=== PATIENT | female | born 1960 | race Caucasian/White ===

== ENCOUNTER 2021-02-22 05:50 | Observation (INO) | payer OTHER ==
[2021-01-29 10:13] LABS: BASOPHILS % 0.3 % (0.0-1.0); EOSINOPHILS # (AUTO) 0.2 (0.0-0.4); EOSINOPHILS % 2.4 % (0.0-6.0); HEMATOCRIT 41.3 % (34.2-44.1); HEMOGLOBIN 13.6 g/dL (12.0-16.0); LYMPHOCYTES # (AUTO) 2.5 (1.0-3.2); LYMPHOCYTES % 24.9 % (18.0-39.1); MEAN CORPUSCULAR HGB CONC 32.9 g/dL (31-35); MONOCYTES # (AUTO) 0.7 (0.2-0.8); MONOCYTES % 6.6 % (4.4-11.3); NEUTROPHILS # (AUTO) 6.5 (2.1-6.9); NEUTROPHILS % 65.5 % (38.7-80.0); PLATELET COUNT 294 x10e3/uL (140-360); RED BLOOD COUNT 4.54 x10e6/uL (3.6-5.1); RED CELL DISTRIBUTION WIDTH 12.6 % (11.7-14.4)
[2021-01-29 10:32] LABS: ANION GAP 12.6 mmol/L (8-16); CALCIUM 9.2 mg/dL (8.4-10.2); CREATININE, SERUM 0.59 mg/dL (0.57-1.11); POTASSIUM 3.6 mmol/L (3.5-5.1)
[2021-02-22] VITALS (7 sets, daily range): BP systolic 96–112; BP diastolic 57–69
[~2021-02-22] VITALS: Ht 152.4 cm; Wt 65.5 kg
[~2021-02-22 05:50] MED LIST: ALBUTEROL INH; ASPIRIN81 MG PO; CRESTOR10 MG PO; ELDERBERRY-VIT1 EACH PO; IBUPROFEN200 MG PO; METOPROLOL SUCC25 MG PO; MULTI-VITAMIN1 EACH PO; NICODERM CQ1 EAC1 TOP; SYMBICORT 16010.2 GM INH; VALSARTAN-HCTZ1 EACH PO; VITAMIN B-121000 MC1 PO; VITAMIN D310 MCG PO
[2021-02-22] MEDS ORDERED: ROPIVACAINE 246.25 MG, EPINEPHRINE HCL 1:1000 1ML 0.5 MG, CLONIDINE HCL 0.08 MG, KETORO... INJ ONE ×5 (06:30)
[2021-02-22] MEDS ORDERED: TYLENOL ARTHRITIS PO (06:41)
[2021-02-22] MEDS ORDERED: Vancomycin IV 1,000 MG ONE (06:44)
[2021-02-22] MEDS ORDERED: SODIUM CHLORIDE 0.9% 500ML 500 ML ONE (06:44)
[2021-02-22] MEDS ORDERED: TRANEXAMIC ACID 1,000 MG/10 ML ML ONE (06:45)
[2021-02-22] MEDS ORDERED: DEXAMETHASONE SOD PHOS 10 MG/1 ML VIAL ONE (06:57)
[2021-02-22] MEDS ORDERED: CELECOXIB 200 MG CAP ONE (06:57)
[2021-02-22] MEDS ORDERED: SODIUM CHLORIDE 0.9% 50ML 100 ML ONE (06:58)
[2021-02-22] MEDS ORDERED: GABAPENTIN 300 MG CAP ONE (06:58)
[2021-02-22] MEDS ORDERED: ONDANSETRON HCL INJ 2MG/ML 2ML 2 MG/ML VIAL IV PRN (09:15)
[2021-02-22] MEDS ORDERED: HYDROCODONE/APAP 5MG-325MG TAB PO PRN (09:15)
[2021-02-22] MEDS ORDERED: KETOROLAC TROMETHAMINE 30 MG/ML VIAL IV PRN (09:15)
[2021-02-22] MEDS ORDERED: ZOLPIDEM TARTRATE 5 MG TAB PO PRN (09:15)
[2021-02-22] MEDS ORDERED: DOCUSATE SODIUM 100 MG CAP PO PRN (09:15)
[2021-02-22] MEDS ORDERED: ACETAMINOPHEN 650 MG SUPP PR PRN (09:15)
[2021-02-22] MEDS ORDERED: DIPHENHYDRAMINE HCL INJ 50 MG/ML VIAL IV PRN (09:15)
[2021-02-22] MEDS: HYDROCODONE/APAP 7.5MG-325MG 1 EA TAB PO PRN ×2 (10:59→15:29)
[2021-02-22] MEDS ORDERED: SODIUM CHLORIDE 0.9% 1000ML 1,000 ML IV SCH (11:00)
[2021-02-22] MEDS ORDERED: Cefazolin 1 GM in SODIUM CHLORIDE 0.9% 50ML 50 ML IV SCH (16:00)
[2021-02-22] MEDS ORDERED: ASPIRIN 325 MG TAB PO SCH (17:00)
[2021-02-22] MEDS ORDERED: CELECOXIB 200 MG CAP PO SCH (17:00)
[2021-02-23] MEDS ORDERED: ACETAMINOPHEN 1000 MG/100 ML IV PRN (09:15)
== END 2021-02-22 17:55 | disposition home or self-care (01) ==
LOC: OR 05:50 → PACU V 09:40 → MED/SURG 09:58
PROVIDERS: ADMIT Specialist; ATTEND Specialist
DX: M87.852 Other osteonecrosis, left femur (principal); Z20.822 Contact with and (suspected) exposure to COVID-19; Z01.818 Encounter for other preprocedural examination; J44.9 Chronic obstructive pulmonary disease, unspecified; I10 Essential (primary) hypertension; E78.5 Hyperlipidemia, unspecified; M16.12 Unilateral primary osteoarthritis, left hip; F17.210 Nicotine dependence, cigarettes, uncomplicated
CPT/HCPCS: 36415; 71046; 72170; 80048; 85025; 86850; 86900; 86920; 93005; 97139; G0378; J0171; J0690; J1100; J1885; J2795; J3370; J7030; J7040; U0002

== ENCOUNTER 2021-07-20 06:37 | Observation (INO) | payer OTHER ==
[2021-07-16 08:32] LABS: BASOPHILS % 0.5 % (0.0-1.0); EOSINOPHILS # (AUTO) 0.2 (0.0-0.4); EOSINOPHILS % 2.7 % (0.0-6.0); HEMATOCRIT 42.5 % (34.2-44.1); HEMOGLOBIN 13.9 g/dL (12.0-16.0); LYMPHOCYTES # (AUTO) 2.4 (1.0-3.2); LYMPHOCYTES % 30.3 % (18.0-39.1); MEAN CORPUSCULAR HEMOGLOBIN 29.9 pg (28-32); MEAN CORPUSCULAR HGB CONC 32.7 g/dL (31-35); MEAN CORPUSCULAR VOLUME 91.4 fL (81-99); MONOCYTES # (AUTO) 0.6 (0.2-0.8); MONOCYTES % 8.1 % (4.4-11.3); NEUTROPHILS # (AUTO) 4.6 (2.1-6.9); PLATELET COUNT 305 x10e3/uL (140-360); RED BLOOD COUNT 4.65 x10e6/uL (3.6-5.1); RED CELL DISTRIBUTION WIDTH 13.2 % (11.7-14.4)
[2021-07-16 09:02] LABS: ANION GAP 12.2 mmol/L (8-16); CALCIUM 9.5 mg/dL (8.4-10.2); CREATININE, SERUM 0.63 mg/dL (0.57-1.11); POTASSIUM 4.2 mmol/L (3.5-5.1)
[~2021-07-20] VITALS: Ht 152.4 cm; Wt 67.1 kg
[~2021-07-20 06:37] MED LIST changes: +TYLENOL ARTHRITIS PO; +VIT C PO
[2021-07-20] MEDS ORDERED: Vancomycin IV 1,000 MG ONE (06:46)
[2021-07-20] MEDS ORDERED: SODIUM CHLORIDE 0.9% 500ML 500 ML ONE (06:46)
[2021-07-20] MEDS ORDERED: TRANEXAMIC ACID 1,000 MG/10 ML ML ONE (06:47)
[2021-07-20] MEDS ORDERED: CELECOXIB 200 MG CAP ONE (07:15)
[2021-07-20] MEDS ORDERED: DEXAMETHASONE SOD PHOS 10 MG/1 ML VIAL ONE (07:15)
[2021-07-20] MEDS ORDERED: GABAPENTIN 300 MG CAP ONE (07:15)
[2021-07-20] MEDS ORDERED: SODIUM CHLORIDE 0.9% 50ML 100 ML ONE (07:16)
[2021-07-20] MEDS ORDERED: ROPIVACAINE 246.25 MG, EPINEPHRINE HCL 1:1000 1ML 0.5 MG, CLONIDINE HCL 0.08 MG, KETORO... INJ ONE ×5 (08:00)
[2021-07-20] MEDS ORDERED: ACETAMINOPHEN 1000 MG/100 ML 100 ML IV ONE (09:22)
[2021-07-20] MEDS ORDERED: ACETAMINOPHEN 650 MG SUPP PR PRN (10:00)
[2021-07-20] MEDS ORDERED: DOCUSATE SODIUM 100 MG CAP PO PRN (10:00)
[2021-07-20] MEDS ORDERED: ONDANSETRON HCL INJ 2MG/ML 2ML 2 MG/ML VIAL IV PRN (10:00)
[2021-07-20] MEDS ORDERED: DIPHENHYDRAMINE HCL INJ 50 MG/ML VIAL IV PRN (10:00)
[2021-07-20] MEDS ORDERED: HYDROMORPHONE 1MG/1ML INJ ONE (10:25)
[2021-07-20 11:41] VITALS: BP 98/65
[2021-07-20] MEDS: KETOROLAC TROMETHAMINE 30 MG/ML VIAL IV PRN (11:50)
[2021-07-20] MEDS ORDERED: DEXAMETHASONE SOD PHOS INJ 4 MG/ML SDV ONE (11:57)
[2021-07-20] MEDS ORDERED: LIDOCAINE HCL 2% LOCAL INJ 5 ML SDV VIAL INJ ONE (11:57)
[2021-07-20] MEDS ORDERED: POVIDONE IODINE 0.05% 0.05 % ML PO ONE (11:57)
[2021-07-20] MEDS ORDERED: ONDANSETRON HCL INJ 2MG/ML 2ML 2 MG/ML VIAL ONE (11:57)
[2021-07-20] MEDS ORDERED: PROPOFOL IV EMULSION 10 MG/ML 20 ML VIAL ONE (11:57)
[2021-07-20] MEDS ORDERED: SEVOFLURANE INHAL SOLN 250 ML PEN BTL ONE (11:57)
[2021-07-20] MEDS: SODIUM CHLORIDE 0.9% 1000ML 1,000 ML IV SCH (12:04)
[2021-07-20 12:05] VITALS: BP 98/65
[2021-07-20 12:19] VITALS: BP 98/65
[2021-07-20] MEDS ORDERED: BUPIVACAINE HCL 0.5% INJ 30 ML VIAL INJ ONE (12:22)
[2021-07-20] MEDS ORDERED: FENTANYL CITRATE/PF 100MCG/2 ML INJ ONE (12:35)
[2021-07-20] MEDS ORDERED: MIDAZOLAM HCL 2 MG/2 ML VIAL ONE (12:35)
[2021-07-20] MEDS: Cefazolin 1 GM in SODIUM CHLORIDE 0.9% 50ML 50 ML IV SCH ×2 (14:00→21:13)
[2021-07-20] MEDS: HYDROCODONE/APAP 7.5MG-325MG 1 EA TAB PO PRN ×2 (14:46→20:43)
[2021-07-20 16:25] VITALS: BP 100/64
[2021-07-20] MEDS: CELECOXIB 100 MG CAP PO SCH (16:41)
[2021-07-20] MEDS: ASPIRIN 325 MG TAB PO SCH (16:41)
[2021-07-20] MEDS ORDERED: ACETAMINOPHEN 1000 MG/100 ML IV PRN (18:00)
[2021-07-20 20:00] VITALS: BP 93/62
[2021-07-20] MEDS ORDERED: ZOLPIDEM TARTRATE 5 MG TAB PO PRN (21:00)
[2021-07-21] VITALS (9 sets, daily range): BP systolic 91–119; BP diastolic 56–69
[2021-07-21] MEDS: HYDROCODONE/APAP 5MG-325MG TAB PO PRN ×3 (01:17→20:15)
[2021-07-21] MEDS: SODIUM CHLORIDE 0.9% 1000ML 1,000 ML IV SCH ×3 (01:17→16:00)
[2021-07-21] MEDS ORDERED: SODIUM CHLORIDE 0.9% 1000ML 1,000 ML IV ONE (04:15)
[2021-07-21 05:29] LABS: HEMATOCRIT 33.1 % (34.2-44.1); HEMOGLOBIN 10.8 g/dL (12.0-16.0)
[2021-07-21] MEDS: Cefazolin 1 GM in SODIUM CHLORIDE 0.9% 50ML 50 ML IV SCH (06:23)
[2021-07-21] MEDS: HYDROCODONE/APAP 7.5MG-325MG 1 EA TAB PO PRN (07:55)
[2021-07-21] MEDS: CELECOXIB 100 MG CAP PO SCH ×2 (07:55→16:03)
[2021-07-21] MEDS: SIMVASTATIN 20 MG TAB PO SCH (07:55)
[2021-07-21] MEDS: ASPIRIN 325 MG TAB PO SCH ×2 (07:55→16:03)
[2021-07-21] MEDS: KETOROLAC TROMETHAMINE 30 MG/ML VIAL IV PRN (11:47)
[2021-07-22] MEDS: HYDROCODONE/APAP 5MG-325MG TAB PO PRN ×2 (00:25→04:53)
[2021-07-22] MEDS: SODIUM CHLORIDE 0.9% 1000ML 1,000 ML IV SCH (01:06)
[2021-07-22 04:20] VITALS: BP 103/64
[2021-07-22 05:54] LABS: HEMATOCRIT 34.4 % (34.2-44.1)
[2021-07-22 07:27] VITALS: BP 109/69
[2021-07-22 08:00] VITALS: BP 109/69
[2021-07-22] MEDS: HYDROCODONE/APAP 7.5MG-325MG 1 EA TAB PO PRN (09:18)
[2021-07-22] MEDS: SIMVASTATIN 20 MG TAB PO SCH (09:32)
[2021-07-22] MEDS: CELECOXIB 100 MG CAP PO SCH (09:32)
[2021-07-22] MEDS: ASPIRIN 325 MG TAB PO SCH (09:32)
[2021-07-22 11:01] VITALS: BP 115/63
== END 2021-07-22 12:10 | disposition home or self-care (01) ==
LOC: OR 06:37 → PACU V 09:49 → MED/SURG 11:30
PROVIDERS: ADMIT Specialist; ATTEND Specialist
DX: M87.851 Other osteonecrosis, right femur (principal); M16.0 Bilateral primary osteoarthritis of hip; G89.18 Other acute postprocedural pain; I10 Essential (primary) hypertension; E78.5 Hyperlipidemia, unspecified; Z20.822 Contact with and (suspected) exposure to COVID-19; Z72.0 Tobacco use; I95.9 Hypotension, unspecified; Z96.642 Presence of left artificial hip joint; J45.909 Unspecified asthma, uncomplicated; E78.00 Pure hypercholesterolemia, unspecified
CPT/HCPCS: 36415; 72131; 72170; 80048; 85014; 85018; 85025; 86850; 86900; 86920; 93005; 94799; C1713; C1776; G0378; J0171; J0690; J1100; J1170; J1885; J2001; J2250; J2405; J2795; J3010; J3370; J7030; J7040; U0002

== ENCOUNTER 2021-08-17 10:00 | Outpatient (RCR) | payer OTHER | END 2021-08-28 | LOC: PT 10:00 | PROVIDERS: ATTEND Physician Assistant | DX: Z96.641 Presence of right artificial hip joint (principal) ==

== ENCOUNTER → 2021-08-17 | Outpatient (CLI) | payer OTHER | LOC: MRI 08:49 | PROVIDERS: ATTEND Specialist | DX: G62.9 Polyneuropathy, unspecified (principal) | CPT/HCPCS: 72148 ==

== ENCOUNTER → 2024-04-12 | Day surgery (SDC) | payer OTHER ==
[2024-04-08 09:52] LABS: BASOPHILS # (AUTO) 0.1 (0.0-0.1); BASOPHILS % 0.5 % (0.0-1.0); EOSINOPHILS # (AUTO) 0.3 (0.0-0.4); EOSINOPHILS % 2.3 % (0.0-6.0); HEMATOCRIT 45.6 % (34.2-44.1); HEMOGLOBIN 14.5 g/dL (12.0-16.0); LYMPHOCYTES # (AUTO) 2.7 (1.0-3.2); LYMPHOCYTES % 22.7 % (18.0-39.1); MEAN CORPUSCULAR HEMOGLOBIN 30.9 pg (28-32); MEAN CORPUSCULAR HGB CONC 31.8 g/dL (31-35); MEAN CORPUSCULAR VOLUME 97.2 fL (81-99); MONOCYTES # (AUTO) 0.7 (0.2-0.8); MONOCYTES % 5.4 % (4.4-11.3); NEUTROPHILS # (AUTO) 8.2 (2.1-6.9); NEUTROPHILS % 68.8 % (38.7-80.0); PLATELET COUNT 288 x10e3/uL (140-360); RED BLOOD COUNT 4.69 x10e6/uL (3.6-5.1); RED CELL DISTRIBUTION WIDTH 12.8 % (11.7-14.4); WHITE BLOOD COUNT 11.94 x10e3/uL (4.8-10.8)
[2024-04-08 10:27] LABS: ANION GAP 15.2 mmol/L (8-16); CALCIUM 9.4 mg/dL (8.4-10.2); CREATININE, SERUM 0.66 mg/dL (0.57-1.11); POTASSIUM 4.2 mmol/L (3.5-5.1)
[~2024-04-12] MED LIST changes: +ACETAMINOPHEN 1000 MG/100 ML 100 ML IV ONE; +ADVAIR 100-501 EACH INH; +DEXAMETHASONE SOD PHOS INJ 4 MG/ML SDV ONE; +FENTANYL CITRATE/PF 100MCG/2 ML INJ ONE; +FISH OIL 1,0001 EAC7 PO; +LIDOCAINE HCL 2% LOCAL INJ 5 ML SDV VIAL INJ ONE; +MELOXICAM7.5 MG PO; +MIDAZOLAM HCL 2 MG/2 ML VIAL ONE; +ONDANSETRON HCL INJ 2MG/ML 2ML 2 MG/ML VIAL ONE; +OZEMPIC0.25 MG/02 SC; +PROPOFOL IV EMULSION 10 MG/ML 20 ML VIAL ONE
[2024-04-12] MEDS: LACTATED RINGER'S 1,000 ML ONE (05:44)
[2024-04-12] MEDS: CEFAZOLIN SODIUM 2 GM ONE (05:45)
[2024-04-12 07:40] VITALS: BP 131/72; PULSE 74; RESP 16; O2SAT 97
== END | disposition home or self-care (01) ==
LOC: OR 05:18
PROVIDERS: ATTEND Orthopaedic Surgery
DX: S83.241A Other tear of medial meniscus, current injury, right knee, initial encounter (principal); S83.281A Other tear of lateral meniscus, current injury, right knee, initial encounter; M67.51 Plica syndrome, right knee; M22.41 Chondromalacia patellae, right knee; M76.51 Patellar tendinitis, right knee; M25.461 Effusion, right knee; I10 Essential (primary) hypertension; E78.5 Hyperlipidemia, unspecified; J44.9 Chronic obstructive pulmonary disease, unspecified; G89.29 Other chronic pain; F41.9 Anxiety disorder, unspecified; F32.A Depression, unspecified; F17.210 Nicotine dependence, cigarettes, uncomplicated; X58.XXXA Exposure to other specified factors, initial encounter; Z01.810 Encounter for preprocedural cardiovascular examination; Z01.812 Encounter for preprocedural laboratory examination; Z01.818 Encounter for other preprocedural examination; Z79.82 Long term (current) use of aspirin; Z79.1 Long term (current) use of non-steroidal anti-inflammatories (NSAID); Z79.85 Long-term (current) use of injectable non-insulin antidiabetic drugs
CPT/HCPCS: 29881; 29999; 36415; 71046; 80048; 85025; 93005; J0131; J1100; J2003; J2250; J2405; J2704; J3010; J7121

== ENCOUNTER → 2024-06-18 | Day surgery (SDC) | payer OTHER ==
[~2024-06-18] MED LIST changes: -ACETAMINOPHEN 1000 MG/100 ML 100 ML IV ONE; -DEXAMETHASONE SOD PHOS INJ 4 MG/ML SDV ONE; -MIDAZOLAM HCL 2 MG/2 ML VIAL ONE; -ONDANSETRON HCL INJ 2MG/ML 2ML 2 MG/ML VIAL ONE; +[UNRECOGNIZED DRUG - REMARK] PO
[2024-06-18] MEDS: LACTATED RINGER'S 1,000 ML ONE (09:31)
[2024-06-18 12:36] VITALS: TEMP 98.6
[2024-06-18 13:00] VITALS: BP 138/81; PULSE 83; RESP 18; O2SAT 99
== END | disposition home or self-care (01) ==
LOC: OR 08:53
PROVIDERS: ATTEND Internal Medicine Gastroenterology
DX: Z12.11 Encounter for screening for malignant neoplasm of colon (principal); D12.3 Benign neoplasm of transverse colon; D12.4 Benign neoplasm of descending colon; D12.5 Benign neoplasm of sigmoid colon; R19.4 Change in bowel habit; I10 Essential (primary) hypertension; K57.30 Diverticulosis of large intestine without perforation or abscess without bleeding; E78.5 Hyperlipidemia, unspecified; J44.9 Chronic obstructive pulmonary disease, unspecified; M25.561 Pain in right knee; F41.9 Anxiety disorder, unspecified; F32.A Depression, unspecified; F17.210 Nicotine dependence, cigarettes, uncomplicated; Z91.041 Radiographic dye allergy status; Z91.013 Allergy to seafood; Z79.82 Long term (current) use of aspirin; Z79.85 Long-term (current) use of injectable non-insulin antidiabetic drugs; Z79.1 Long term (current) use of non-steroidal anti-inflammatories (NSAID); Z79.899 Other long term (current) drug therapy; Z68.30 Body mass index [BMI] 30.0-30.9, adult; Z80.0 Family history of malignant neoplasm of digestive organs
CPT/HCPCS: 45380; 45381; 45384; J2003; J2704; J3010; J7121; 45378; 45385